=== PATIENT | male | born 1960 | race Caucasian/White ===

== ENCOUNTER → 2021-01-08 14:11 | Outpatient (CLI) | payer OTHER, SELFPAY ==
[2021-01-08 16:53] LABS: Cholesterol 230 mg/dL (140-199); HDL Cholesterol 29 mg/dL (40-60); LDL Cholesterol Calculated 163 mg/dL (<100); Triglycerides 190 mg/dL (35-150)
[2021-01-08 17:21] LABS: Prostate Specific Antigen Scrn 4.19 ng/mL (0.1-4.0)
== END ==
PROVIDERS: PCP Student in an Organized Health Care Education/Training Program; Referring Provider Student in an Organized Health Care Education/Training Program; Visit Provider Student in an Organized Health Care Education/Training Program
DX: Z13.220 Encounter for screening for lipoid disorders (principal); Z12.5 Encounter for screening for malignant neoplasm of prostate
CPT/HCPCS: 36415; 80061; G0103

== ENCOUNTER → 2021-03-04 12:04 | Outpatient (CLI) | payer OTHER, SELFPAY ==
[2021-03-04 12:55] LABS: Alanine Aminotransferase 33 IU/L (<50); Albumin 4.3 g/dL (3.5-5.0); Albumin Globulin Ratio 1.2 (1.0-2.8); Alkaline Phosphatase 88 U/L (38-126); Aspartate Aminotransferase 38 IU/L (17-59); BUN Creatinine Ratio 14.3 (6-22); Bilirubin Total 0.5 mg/dL (0.2-1.3); Blood Urea Nitrogen 12 mg/dL (9-20); Calcium 9.6 mg/dL (8.4-10.2); Carbon Dioxide 26 mmol/L (22-32); Chloride 104 mmol/L (98-107); Cholesterol 195 mg/dL (140-199); Estimated Glomerular Filt Rate > 60.0 mL/min (>60); Globulin 3.5 g/dL (1.7-4.1); Glucose 132 mg/dL (70-100); HDL Cholesterol 32 mg/dL (40-60); HEMOLYSIS < 15 (0-50); LDL Cholesterol Calculated 117 mg/dL (<100); Sodium 137 mmol/L (137-145); Total Protein 7.8 g/dL (6.3-8.2); Triglycerides 229 mg/dL (35-150)
[2021-03-04 13:07] LABS: Potassium 4.2 mmol/L (3.4-5.1)
[2021-03-04 13:23] LABS: Prostate Specific Antigen 5.66 ng/mL (0.10-4.00)
[2021-03-04 13:25] LABS: Prostate Specific Antigen 5.83 ng/mL (0.10-4.00)
== END ==
PROVIDERS: Nurse Practitioner; PCP Student in an Organized Health Care Education/Training Program; Referring Provider Student in an Organized Health Care Education/Training Program; Visit Provider Student in an Organized Health Care Education/Training Program
DX: R97.20 Elevated prostate specific antigen [PSA] (principal); E78.2 Mixed hyperlipidemia; Z79.899 Other long term (current) drug therapy
CPT/HCPCS: 36415; 80053; 80061; 84153

== ENCOUNTER → 2021-05-15 10:01 | Outpatient (CLI) | payer OTHER, SELFPAY ==
[2021-05-15 10:48] LABS: Hemoglobin A1C% w Est Avg Glu 6.2 % (4.0-6.0)
[2021-05-15 10:58] LABS: Cholesterol 174 mg/dL (140-199); HDL Cholesterol 34 mg/dL (40-60); LDL Cholesterol Calculated 108 mg/dL (<100); Triglycerides 162 mg/dL (35-150)
== END ==
PROVIDERS: PCP Student in an Organized Health Care Education/Training Program; Referring Provider Student in an Organized Health Care Education/Training Program; Visit Provider Student in an Organized Health Care Education/Training Program
DX: E66.01 Morbid (severe) obesity due to excess calories (principal); R73.9 Hyperglycemia, unspecified; Z68.41 Body mass index [BMI] 40.0-44.9, adult; E78.2 Mixed hyperlipidemia
CPT/HCPCS: 36415; 80061; 83036

== ENCOUNTER → 2021-07-16 13:25 | Outpatient (CLI) | payer OTHER, SELFPAY ==
[2021-07-16 15:09] LABS: Prostate Specific Antigen 3.47 ng/mL (0.10-4.00)
== END ==
PROVIDERS: PCP Student in an Organized Health Care Education/Training Program; Referring Provider Specialist; Visit Provider Specialist
DX: N40.1 Benign prostatic hyperplasia with lower urinary tract symptoms (principal); N13.8 Other obstructive and reflux uropathy; R97.20 Elevated prostate specific antigen [PSA]
CPT/HCPCS: 36415; 84153

== ENCOUNTER → 2021-10-24 09:30 | Outpatient (CLI) | payer OTHER, SELFPAY ==
[2021-10-24 10:11] LABS: Hemoglobin A1C% w Est Avg Glu 6.8 % (4.0-6.0)
[2021-10-24 10:16] LABS: BUN Creatinine Ratio 16.3 (6-22); Blood Urea Nitrogen 13 mg/dL (9-20); Calcium 9.6 mg/dL (8.4-10.2); Carbon Dioxide 27 mmol/L (22-32); Chloride 104 mmol/L (98-107); Estimated Glomerular Filt Rate > 60.0 mL/min (>60); Glucose 147 mg/dL (70-100); HEMOLYSIS < 15 (0-50); Potassium 4.2 mmol/L (3.4-5.1); Sodium 137 mmol/L (137-145)
[2021-10-24 10:24] LABS: Creatinine Urine Random 145.5 mg/dL
[2021-10-24 10:29] LABS: Microalbumi Creatinin Ratio Ur 6.8 ug/mg CR (<30)
[2021-10-24 10:46] LABS: Prostate Specific Antigen Scrn 4.44 ng/mL (0.1-4.0)
== END ==
PROVIDERS: Specialist; PCP Student in an Organized Health Care Education/Training Program; Referring Provider Student in an Organized Health Care Education/Training Program; Visit Provider Student in an Organized Health Care Education/Training Program
DX: R73.03 Prediabetes (principal); E66.01 Morbid (severe) obesity due to excess calories; Z68.41 Body mass index [BMI] 40.0-44.9, adult; R97.20 Elevated prostate specific antigen [PSA]
CPT/HCPCS: 36415; 80048; 82043; 82570; 83036; G0103

== ENCOUNTER → 2021-12-05 10:51 | Outpatient (CLI) | payer OTHER, SELFPAY ==
[2021-12-05 12:13] LABS: Hemoglobin A1C% w Est Avg Glu 6.5 % (4.0-6.0)
[2021-12-05 12:59] LABS: Prostate Specific Antigen 4.06 ng/mL (0.10-4.00)
== END ==
PROVIDERS: PCP Student in an Organized Health Care Education/Training Program; Referring Provider Specialist; Visit Provider Specialist
DX: E11.9 Type 2 diabetes mellitus without complications (principal); R97.20 Elevated prostate specific antigen [PSA]
CPT/HCPCS: 36415; 83036; 84153

== ENCOUNTER → 2022-04-02 09:29 | Outpatient (CLI) | payer OTHER, SELFPAY ==
[2022-04-02 10:40] LABS: Hemoglobin A1C% w Est Avg Glu 6.7 % (4.0-6.0)
[2022-04-02 12:08] LABS: Prostate Specific Antigen 5.09 ng/mL (0.10-4.00)
== END ==
PROVIDERS: PCP Student in an Organized Health Care Education/Training Program; Referring Provider Specialist; Visit Provider Specialist
DX: R97.20 Elevated prostate specific antigen [PSA] (principal); E11.9 Type 2 diabetes mellitus without complications
CPT/HCPCS: 36415; 83036; 84153

== ENCOUNTER → 2022-05-01 15:19 | Outpatient (CLI) | payer OTHER, SELFPAY ==
--- NOTE | 2022-05-01 15:20 | DI.MRI.S_ITS ---
PROCEDURE: MR PELIS WO/W CON INDICATIONS: elevated psa TECHNIQUE: Coronal HASTE, axial T1 FSE with fat saturation, 3-plane nonbreath-hold T2 FSE. After the administration of contrast, dynamic axial, delayed axial and coronal VIBE or 2-D FLASH with fat saturation through the pelvis. Optional diffusion weighted imaging and ADC may be performed. COMPARISON: None. FINDINGS: Image quality: Diffusion weighted and dynamic contrast enhanced images are diagnostic. Prostate: Gland size is 5.8 x 5.5 x 5.7 cm; ellipsoid gland volume is 94.5 mL. 2.0 cm T1 and T2 hyperintense wedge-shaped nodule in the anterior transition zone at mid gland to apex is likely hemorrhagic focus. Lesion size(s): Lesion 1: 0.9 x 0.7 x 0.9 cm. Lesion 2: 1.2 x 0.7 x 0.9 cm Lesion 3: 1.4 x 1.5 x 1.6 cm Lesion location(s) (sector): Lesion 1: Right posterolateral peripheral zone at the gland base Lesion 2: Right posterolateral peripheral zone at the gland apex Lesion 3: Right posterior transition zone in the mid gland abutting the pseudo capsule Lesion description: Lesion 1: Ovoid lesion with indistinct margin Lesion 2: Irregular lesion with indistinct margin Lesion 3: Irregular lesion with indistinct margins T2 weighted imaging (T2WI) morphology score: Lesion 1: Three Lesion 2: Three Lesion 3: Three Diffusion weighted imaging (DWI) morphology score: Lesion 1: Two Lesion 2: Three Lesion 3: Three Dynamic contrast enhancement (DCE): Lesion 1: Absent Lesion 2: Absent Lesion 3: Absent Lesion PI-RADS score: Lesion 1: PI-RADS two Lesion 2: PI-RADS three Lesion 3: PI-RADS three Genitourinary system: Bladder wall thickness is normal. Distal ureters are non distended. Bowel and peritoneum: No pathologic free pelvic fluid. Inferior colon and small bowel loops are normal in caliber. Nodes and vessels: No pelvic or inguinal adenopathy by size criteria. Iliac vessels are normal in caliber. Soft tissues: No inguinal hernias. Bones: Marrow demonstrates normal overall signal, without lesions to suggest metastases. IMPRESSION: 1. PI-RADS two and PI-RADS three lesions within the right prostate gland on a background of BPH. The smaller peripheral zone nodules may be contiguous with the larger transition zone nodule. 2. Wedge-shaped focus of probable hemorrhage in the anterior right prostate. 3. No pelvic adenopathy. Dictated by: Agueda Corey M.D. on 05/02/2022 at 9:11 Approved by: Agueda Corey M.D. on 05/02/2022 at 9:43
== END ==
PROVIDERS: PCP Student in an Organized Health Care Education/Training Program; Referring Provider Specialist; Visit Provider Specialist
DX: N42.9 Disorder of prostate, unspecified (principal); R97.20 Elevated prostate specific antigen [PSA]
CPT/HCPCS: 72197; A9579

== ENCOUNTER → 2022-05-16 08:28 | Outpatient (CLI) | payer OTHER, SELFPAY ==
[2022-05-16 10:43] LABS: BUN Creatinine Ratio 19.5 (6-22); Blood Urea Nitrogen 16 mg/dL (9-20); Calcium 9.1 mg/dL (8.4-10.2); Carbon Dioxide 24 mmol/L (22-32); Chloride 107 mmol/L (98-107); Cholesterol 175 mg/dL (140-199); Estimated Glomerular Filt Rate > 60 mL/min (>60); Glucose 147 mg/dL (80-110); HDL Cholesterol 33 mg/dL (40-60); HEMOLYSIS < 15 (0-50); LDL Cholesterol Calculated 120 mg/dL (<100); Potassium 4.1 mmol/L (3.4-5.1); Sodium 139 mmol/L (137-145); Triglycerides 109 mg/dL (35-150)
[2022-05-16 11:05] LABS: Creatinine Urine Random 154.2 mg/dL
[2022-05-16 11:09] LABS: Microalbumin Urine Random 1.4 mg/dL (0-1.6)
[2022-05-16 11:21] LABS: Hemoglobin A1C% w Est Avg Glu 6.1 % (4.0-6.0)
[2022-05-18 07:34] LABS: PSA Free % 24.7 % (.); PSA, Total 4.7 ng/mL (0.0-4.0)
== END ==
PROVIDERS: PCP Student in an Organized Health Care Education/Training Program; Referring Provider Specialist; Visit Provider Specialist
DX: E11.9 Type 2 diabetes mellitus without complications (principal); E78.2 Mixed hyperlipidemia; R97.20 Elevated prostate specific antigen [PSA]
CPT/HCPCS: 36415; 80048; 80061; 82043; 82570; 83036; 84153; 84154

== ENCOUNTER → 2022-11-13 12:18 | Outpatient (CLI) | payer OTHER, SELFPAY ==
[2022-11-13 14:07] LABS: Hemoglobin A1C% w Est Avg Glu 6.5 % (4.0-6.0)
[2022-11-13 14:32] LABS: Blood Urea Nitrogen 12 mg/dL (9-20); Calcium 9.2 mg/dL (8.4-10.2); Carbon Dioxide 27 mmol/L (22-32); Chloride 102 mmol/L (98-107); Estimated Glomerular Filt Rate > 60 mL/min (>60); Glucose 122 mg/dL (80-110); HEMOLYSIS < 15 (0-50); Sodium 138 mmol/L (137-145)
[2022-11-13 15:01] LABS: Prostate Specific Antigen 3.18 ng/mL (0.10-4.00)
[2022-11-13 20:26] LABS: Hep C Virus Ab w/Reflex Quant NEGATIVE s/c (NEGATIVE)
== END ==
PROVIDERS: PCP Student in an Organized Health Care Education/Training Program; Referring Provider Specialist; Visit Provider Specialist
DX: Z11.59 Encounter for screening for other viral diseases (principal); E11.9 Type 2 diabetes mellitus without complications; N13.8 Other obstructive and reflux uropathy; N40.1 Benign prostatic hyperplasia with lower urinary tract symptoms; R97.20 Elevated prostate specific antigen [PSA]
CPT/HCPCS: 36415; 80048; 83036; 84153; 86803

== ENCOUNTER → 2023-05-21 08:43 | Outpatient (CLI) | payer OTHER, SELFPAY ==
[2023-05-21 11:16] LABS: Cholesterol 190 mg/dL (140-199); HDL Cholesterol 32 mg/dL (40-60); LDL Cholesterol Calculated 109 mg/dL (<100); Triglycerides 245 mg/dL (35-150)
[2023-05-21 11:43] LABS: Prostate Specific Antigen 2.69 ng/mL (0.10-4.00)
[2023-05-21 13:12] LABS: Creatinine Urine Random 158.5 mg/dL
[2023-05-21 13:14] LABS: Microalbumi Creatinin Ratio Ur 4.4 ug/mg CR (<30); Microalbumin Urine Random 0.7 mg/dL (0-1.6)
[2023-05-22 06:33] LABS: x Labcorp Estim. Avg Glu (eAG) 160 mg/dL (.); x Labcorp Hemoglobin A1c 7.2 % (4.8-5.6)
== END ==
PROVIDERS: PCP Student in an Organized Health Care Education/Training Program; Referring Provider Specialist; Visit Provider Specialist
DX: E11.9 Type 2 diabetes mellitus without complications (principal); E78.2 Mixed hyperlipidemia; N13.8 Other obstructive and reflux uropathy; N40.1 Benign prostatic hyperplasia with lower urinary tract symptoms; R97.20 Elevated prostate specific antigen [PSA]
CPT/HCPCS: 36415; 80061; 82043; 82570; 83036; 84153

== ENCOUNTER → 2023-06-09 14:47 | Outpatient (CLI) | payer OTHER, SELFPAY ==
--- NOTE | 2023-06-09 14:48 | DI.RAD.S_ITS ---
PROCEDURE: XR CHEST 2V INDICATIONS: interstitial? cardiomegaly? chronic cough+air hunger 10y TECHNIQUE: 2 views of the chest were acquired. COMPARISON: None. FINDINGS: Surgical changes and devices: None. Lungs and pleura: Lungs are clear. No pleural effusions or pneumothorax. Mediastinum: Mediastinal contours are normal. Heart size is normal. Bones and chest wall: No suspicious bony abnormalities. Soft tissues appear unremarkable. IMPRESSION: No acute cardiopulmonary disease process. Dictated by: Meghana Stafford MD, PhD on 06/09/2023 at 15:11 Approved by: Meghana Stafford MD, PhD on 06/09/2023 at 15:12
== END ==
PROVIDERS: PCP Pediatrics; Referring Provider Pediatrics; Visit Provider Pediatrics
DX: R05.9 Cough, unspecified (principal); E66.01 Morbid (severe) obesity due to excess calories; E78.2 Mixed hyperlipidemia; G47.30 Sleep apnea, unspecified; K21.9 Gastro-esophageal reflux disease without esophagitis; N13.8 Other obstructive and reflux uropathy; N40.1 Benign prostatic hyperplasia with lower urinary tract symptoms; R97.20 Elevated prostate specific antigen [PSA]; Z68.41 Body mass index [BMI] 40.0-44.9, adult
CPT/HCPCS: 71046

== ENCOUNTER → 2023-06-23 08:40 | Outpatient (CLI) | payer OTHER, SELFPAY ==
[2023-06-23 09:55] LABS: Add Manual Diff / Slide Review NO; Basophils Absolute Auto 100 /uL (0-100); Basophils Percent Auto 1.1 % (0-2); Eosinophils Absolute Auto 100 /uL (0-450); Eosinophils Percent Auto 2.5 % (2-4); Hematocrit 43.4 % (41-53); Hemoglobin 15.2 g/dL (13.5-17.5); Lymphocytes Absolute Auto 1400 /uL (1100-4500); Lymphocytes Percent Auto 24.4 % (25-40); Mean Corpuscular Hemoglobin 29.3 PG (26-34); Mean Corpuscular Volume 83.8 fL (80-100); Monocytes Absolute Auto 300 /uL (0-900); Monocytes Percent Auto 6.3 % (3-14); Neutrophils Absolute Auto 3600 /uL (1500-7000); Neutrophils Percent Auto 65.7 % (50-75); Platelet Count 244 X10^3/uL (150-400); Red Blood Cell Count 5.18 X10^6/uL (4.5-5.9); Red Cell Distribution Width 13.7 % (11.6-14.8); White Blood Cell Count 5.5 X10^3/uL (4.5-11.0)
[2023-06-23 10:00] LABS: Hemoglobin A1C% w Est Avg Glu 7.5 % (4.0-6.0)
[2023-06-23 10:20] LABS: Alanine Aminotransferase 36 IU/L (<50); Albumin 4.2 g/dL (3.5-5.0); Albumin Globulin Ratio 1.4 (1.0-2.8); Alkaline Phosphatase 73 U/L (38-126); Aspartate Aminotransferase 25 IU/L (17-59); BUN Creatinine Ratio 11.8 (6-22); Bilirubin Total 0.7 mg/dL (0.2-1.3); Blood Urea Nitrogen 9 mg/dL (9-20); Calcium 9.2 mg/dL (8.4-10.2); Carbon Dioxide 27 mmol/L (22-32); Chloride 102 mmol/L (98-107); Cholesterol 179 mg/dL (140-199); Estimated Glomerular Filt Rate > 60 mL/min (>60); Globulin 2.9 g/dL (1.7-4.1); Glucose 172 mg/dL (80-110); HDL Cholesterol 35 mg/dL (40-60); HEMOLYSIS < 15 (0-50); LDL Cholesterol Calculated 109 mg/dL (<100); Potassium 4.3 mmol/L (3.4-5.1); Sodium 137 mmol/L (137-145); Total Protein 7.1 g/dL (6.3-8.2); Triglycerides 175 mg/dL (35-150)
[2023-06-23 11:16] LABS: Appearance Urine UA CLEAR; Bilirubin Urine UA NEGATIVE (NEGATIVE); Color Urine UA YELLOW; Glucose Urine UA NEGATIVE (Negative); Ketones Urine UA NEGATIVE (NEGATIVE); Leukocyte Esterase Urine UA NEGATIVE (NEGATIVE); Nitrite Urine UA NEGATIVE (Negative); Occult Blood Urine UA NEGATIVE (Negative); Protein Urine UA NEGATIVE (Negative); Specific Gravity Urine UA <=1.005 (1.000-1.035); Urobilinogen Urine UA 0.2 E.U./dL (0.2); pH Urine UA 5.5 (4.5-8.0)
[2023-06-23 11:35] LABS: Bacteria Urine None Seen; Culture Indicated Urine Cult Not Indicated; RBC Urine None Seen (0-5/HPF); Squamous Epithelial Cell Urine 0-1 /HPF (0-5/HPF); WBC Urine 0-1/HPF (0-5/HPF)
[2023-06-23 11:46] LABS: Creatinine Urine Random 30.7 mg/dL
[2023-06-23 12:07] LABS: Microalbumin Urine Random < 0.6 mg/dL (0-1.6)
[2023-06-24 13:39] LABS: Interpretation Negative (Negative)
[2023-06-25 18:14] LABS: M pneumoniae IgG Ab 349 U/mL (0-99)
== END ==
PROVIDERS: PCP Pediatrics; Referring Provider Pediatrics; Visit Provider Pediatrics
DX: E66.01 Morbid (severe) obesity due to excess calories (principal); E78.2 Mixed hyperlipidemia; G47.30 Sleep apnea, unspecified; K21.9 Gastro-esophageal reflux disease without esophagitis; N40.1 Benign prostatic hyperplasia with lower urinary tract symptoms; N13.8 Other obstructive and reflux uropathy; R97.20 Elevated prostate specific antigen [PSA]; Z68.41 Body mass index [BMI] 40.0-44.9, adult
CPT/HCPCS: 36415; 80053; 80061; 81001; 82043; 82570; 83013; 83036; 85025; 86738; 93005

== ENCOUNTER → 2024-05-17 15:03 | Outpatient (CLI) | payer OTHER, SELFPAY ==
--- NOTE | 2024-05-17 15:06 | DIAB.MNT ---
Addendum entered by Lacy Chung 05/17/24 16:00: Also reviewed action, SE, and precautions regarding GLP1. Answered any questions regarding medications. Original Note: Initial Diabetes Medical Nutrition Therapy Assessment Name: Lisa Mendez ([place]) Date: 05/17/24 Time: 305-4p Dx: Type II Diabetes Preferred Learning Style: Presents with spouse, Carmela for initial Dm visit virtually using [facility]. Has not started Ozempic due to issues with rx from providers. Continues on Metformin 1000mg BID. States he does not know much about diabetes. States hgA1c keeps going up over last 6 years. States he thinks he has had a HgA1c of 6.7% in the past possibly. Spouse has a sibling with T1. She is curious about symptoms with T2DM. No symptoms of hypoglycemia. Over 6-12 years, has developed a cough. Provider thinks it is reflux. Using cough drops, he is curious if they could be contributing to elevated BG. Per referral, provider thinks he likely has T2DM due to hgA1 of 6.4 with Metformin. Don states he thinks he has had a result above 6.5% but he is unsure. Carmlea states she was unaware that fruit was a CHO. Will now count this as CHO choice. Diet Recall: Wake 7a 8a: 2c coffee with cream, 2 bagels with cream cheese or slice of cheese + fruit x 1/2c 12-1p: sandwich with crackers, fruit, with tea 5-6p: pizza homemade x 1 whole pizza OR meatballs with rice x 3/4c and veggies OR pasta x 1-1.5 with veggies and parm and butter OR egg with veggies Beverages: water 12oz x 6, coffee x 2, 1 ETOH beverage per day Does not like chicken. Likes salmon, no other fish. Anthropometrics: Ht: 6' Wt: 304# 03/22/24 Weight history: Reports recent wt loss r/t bad cold, 7# loss. Physical Activity: No intentional exercise. Self-Monitoring Blood Glucose: Has a meter, but not currently checking BG. Diabetes Medications: 1000 mg Metformin BID Pertinent Labs: HGA1c: 6.4% 02/2024 Past Medical History: (Last Updated 12/01/23 @ 15:33 by Satish Zaman MD) BPH w urinary obs/LUTS Chronic cough (~2011) GERD (gastroesophageal reflux disease) (~2011) Glucosuria History of elevated PSA Incomplete bladder emptying Ruptured tympanic membrane (~1989) Sleep apnea (~2009) Tinnitus (~2009) Nutrition Rx: Carbohydrates: Meal:45g Snack:15-30g Nutrition Diagnosis: - Excessive CHO intake r/t food and nutrition related knowledge deficit aeb diet recall - Physical inactivity r/t stage of change contemplation aeb pt report Intervention: This participant was very receptive. Provided appropriate educational handouts. Discussed the following topics: Completed intake assessment. Discussed barriers to care. Pathophysiology of T2DM HgA1c, its correlation to blood glucose numbers, and rationale for goal Importance of self-monitoring, how often, and when to check. Suggested checking at different times to evaluate meals. Declined demonstration guidance today, however if needed next visit will provide. Plate Method, impact of macronutrients on blood sugar, meal timing, carbohydrate counting, pairing macronutrients and spreading out carbohydrates for better blood glucose management Recommended servings for carbohydrates at meals and snacks Heart health nutrition Brainstormed appropriate meal plan based on food preferences Role of physical activity and following provider guidelines for safety Created SMART goals for patient self-care and success. Goals: Eat every 3-4 hours Add 3p snack Count fruit as a carb Pair carbs with protein for meals and snacks Walk 10 mins after dinner Follow-up: [facility] follow-up in 2-3 weeks Lacy Chung RDN, [facility] Certified Diabetes Care and Distributing Clerk P: [phone] Thank you for this referral
== END ==
PROVIDERS: PCP Internal Medicine; Referring Provider Physician Assistant
DX: E11.9 Type 2 diabetes mellitus without complications (principal); Z79.84 Long term (current) use of oral hypoglycemic drugs; Z71.3 Dietary counseling and surveillance
CPT/HCPCS: 97802

== ENCOUNTER → 2024-06-10 14:56 | Outpatient (CLI) | payer OTHER, SELFPAY ==
--- NOTE | 2024-06-10 14:59 | DIAB.MNTFU ---
Follow-up Diabetes Medical Nutrition Therapy Assessment Name: Lisa Mendez ([place]) Date: 06/10/24 Time: 3-320 Dx: Type II Diabetes Presents with spouse, Carmela for follow-up Dm visit virtually using Portal. Reduced portions. Cut down on cheese sandwiches and doing some tuna sandwiches. Started Ozempic on 05/24. One week 3 of 0.25mg per week injections. Has noticed some early satiety. Overall, BG have been in goal. No significant SE with Ozempic reported. Diet Recall: Wake 7a 8a: 2c coffee with cream, 2 Persian muffin with slice cheese 12-1p: 1/2 sandwich, 1/2c fruit 5-6p: pasta with turkey meatballs OR big omelet with veggies cheese OR protein, carbs (ie multigrain rice x 1/2c), veggies Beverages: water 12oz x 6, coffee x 2, 1 ETOH beverage per day Does not like chicken. Likes salmon, no other fish. Anthropometrics: Ht: 6' Wt: 304# home reported 304# 03/22/24 Physical Activity: No intentional exercise. Yard work daily. Self-Monitoring Blood Glucose: Started checking, FBG and 2 hour pc dinner. Most in goal. One elevated FBG at 140 mg/dl. Date Pre Post Pre Post Pre Post Notes 05/24 105 151 8/2 106 138 8/5 79 135 8/6 140 135 8/7 125 134 8/8 128 134 8/9 122 125 8/12 93 124 8/13 118 112 8/14 122 104 /15 95 80 Small dinner, big lunch. 06/10 114 Diabetes Medications: 500 mg Metformin BID 0.25mg Ozempic per week and titrating Pertinent Labs: HgA1c: 6.4% 02/2024 Past Medical History: (Last Updated 12/01/23 @ 15:33 by Satish Zaman MD) BPH w urinary obs/LUTS Chronic cough (~2011) GERD (gastroesophageal reflux disease) (~2011) Glucosuria History of elevated PSA Incomplete bladder emptying Ruptured tympanic membrane (~1989) Sleep apnea (~2009) Tinnitus (~2009) Nutrition Rx: Carbohydrates: Meal:45g Snack:15-30g Nutrition Diagnosis: - Excessive CHO intake r/t food and nutrition related knowledge deficit aeb diet recall- improved - Physical inactivity r/t stage of change contemplation aeb pt report - in progress Intervention: This participant was very receptive. Provided appropriate educational handouts. Discussed the following topics: Impact of GLP1 meds on appetite Importance of balancing enough intake with satiety as Ozempic is titrated up Reviewed SMBG goals and recommendations Discussed physical activity goals, especially as weather changes Created SMART goals for patient self-care and success. Goals: Eat every 3-4 hours- in progress Add 3p snack- not met Count fruit as a carb- met Pair carbs with protein for meals and snacks- met Walk 10 mins after dinner - movement after dinner Consider physical activity program especially for winter months- new Follow-up: EVI ANDERSON follow-up prn. Overall, BG are well managed. Diet is going well and he denies any questions at this time. Encouraged him to call or message prn for questions or follow-up needs. Lacy Chung RDN, [facility] Certified Diabetes Care and News Operations Manager P: [phone] Thank you for this referral
== END ==
LOC: DIET 14:58
PROVIDERS: PCP Internal Medicine; Referring Provider Physician Assistant
DX: E11.9 Type 2 diabetes mellitus without complications (principal); Z79.84 Long term (current) use of oral hypoglycemic drugs; Z79.85 Long-term (current) use of injectable non-insulin antidiabetic drugs; Z71.3 Dietary counseling and surveillance
CPT/HCPCS: 97803